=== PATIENT | male | born 1965 | race Caucasian/White ===

== ENCOUNTER 2016-11-10 05:59 | Inpatient (IN) | payer OTHER ==
[~2016-11-10] VITALS: Ht 170.2 cm; Wt 86.4 kg
[~2016-11-10 05:59] MED LIST: 0.9% SODIUM CHLORIDE 10 ML VIAL IVP ONE; AMLO-512 PO; EPHEDrine SULFATE 50 MG/ML VIAL IM ONE; FentaNYL CITRATE-PF 100 MCG/2 ML VIAL IVP ONE; HYDR25TA PO; KETAMINE HCL 50 MG/ML 10 ML VIAL IVP ONE; LISI-662 PO; MIDAZOLAM HCL 2 MG/2 ML VIAL IVP ONE; OMEP20 PO; RANI150T7 PO; RINGERS SOLUTION,LACTATED 1,000 ML IV ONE
[2016-11-10] MEDS ORDERED: RINGERS SOLUTION,LACTATED 1,000 ML IV ONE ×2 (06:00→08:18)
[2016-11-10 06:50] LABS: BASOPHILS % (AUTO) 0.4 % (0.0-2.0); EOSINOPHILS % (AUTO) 6.4 % (1.0-6.0); HEMOGLOBIN 14.4 g/dL (13.5-17.5); LYMPHOCYTES # (AUTO) 2.6 K/uL (1.0-4.8); MEAN CORPUSCULAR HEMOGLOBIN 28.8 pg (26.0-34.0); MEAN CORPUSCULAR HGB CONC 32.7 G/dL (31.0-37.0); MEAN CORPUSCULAR VOLUME 88 fL (80-100); MONOCYTES # (AUTO) 0.8 K/uL (0.1-1.0); MONOCYTES % (AUTO) 10.5 % (2.0-9.0); NEUTROPHILS # (AUTO) 3.5 K/uL (1.8-7.7); NEUTROPHILS % (AUTO) 47.7 % (40.0-70.0); PLATELET COUNT (AUTO) 319 K/uL (150-450); RED BLOOD CELL COUNT(AUTO) 4.99 MIL/uL (4.50-5.90); RED CELL DISTRIBUTION WIDTH 13.4 % (11.5-14.5); WHITE BLOOD COUNT (AUTO) 7.4 K/uL (4.5-11.0)
[2016-11-10] MEDS ORDERED: SODIUM CHLORIDE 0.9% 10 ML ONE (06:55)
[2016-11-10] MEDS ORDERED: BUPIVACAINE HCL/PF 0.5% 30 ML VIAL ONE (06:55)
[2016-11-10] MEDS ORDERED: ONDANSETRON HCL 4 MG/2 ML VIAL IVP PRN ×2 (07:00→07:30)
[2016-11-10] MEDS ORDERED: TRANEXAMIC ACID 1,000 MG in DEXTROSE 5%-WATER 50 ML IV ONE (07:00)
[2016-11-10] MEDS ORDERED: PROMETHAZINE HCL 25 MG/ML VIAL IM PRN (07:00)
[2016-11-10] MEDS ORDERED: CELECOXIB 200 MG CAPSULE PO ONE (07:00)
[2016-11-10] MEDS ORDERED: FentaNYL CITRATE-PF 100 MCG/2 ML VIAL IVP PRN (07:00)
[2016-11-10] MEDS ORDERED: HYDROmorphone 2 MG/ML SYRINGE IVP PRN ×2 (07:00)
[2016-11-10] MEDS ORDERED: ZOLPIDEM TARTRATE 5 MG TABLET PO PRN (07:00)
[2016-11-10] MEDS ORDERED: MEPERIDINE-PF 25 MG/ML SYRINGE IVP PRN (07:00)
[2016-11-10 07:01] LABS: ANION GAP 8 mmol/L (8-16); CALCIUM, TOTAL 9.4 mg/dL (8.8-10.5); CARBON DIOXIDE 29 mmol/L (22-29); CHLORIDE 103 mmol/L (98-107); CREATININE 1.09 mg/dL (0.60-1.30); GLOMERULAR FILTR. RATE CALC > 60 mL/min (>60); POTASSIUM 4.1 mmol/L (3.5-5.1); PROTHROMBIN TIME 10.5 SEC (9.4-11.6); SODIUM SERUM 140 mmol/L (136-145); UREA NITROGEN, BLOOD 19 mg/dL (7-18)
[2016-11-10] MEDS: ACETAMINOPHEN 1000 MG/ISO-OSM 100 ML IV SCH ×3 (07:01→18:55)
[2016-11-10] MEDS ORDERED: ACETAMINOPHEN 1000 MG/ISO-OSM 100 ML IV ONE (07:01)
[2016-11-10] MEDS ORDERED: CELECOXIB 200 MG CAPSULE ONE (07:01)
[2016-11-10 07:06] LABS: ALANINE AMINOTRANSFERASE 32 U/L (12-78); ALBUMIN 4.4 g/dL (3.4-5.0); ASPARTATE AMINOTRANSFERASE 18 U/L (15-37); BILIRUBIN,TOTAL 0.8 mg/dL (0.1-1.0); TOTAL PROTEIN, SERUM 7.8 g/dL (6.4-8.2)
[2016-11-10] MEDS ORDERED: SODIUM CHLORIDE 0.9% 100 ML ONE (07:12)
[2016-11-10] MEDS ORDERED: SODIUM CL IRRIG SOLN BAG 3,000 ML IRRIG ONE (07:13)
[2016-11-10] MEDS ORDERED: SODIUM CHLORIDE 0.9% 1,000 ML IV SCH (07:24)
[2016-11-10] MEDS ORDERED: 0.9% SODIUM CHLORIDE 10 ML SYRINGE IVP PRN (07:30)
[2016-11-10] MEDS ORDERED: DiphenhydrAMINE HCL 50 MG/ML VIAL IVP PRN (07:30)
[2016-11-10] MEDS ORDERED: BENZOCAINE/MENTHOL LOZENGE [8 LOZENGES/PACKET] PO PRN (07:30)
[2016-11-10] MEDS ORDERED: BISACODYL 10 MG RECTAL RECTAL SUPPOSITORY PR PRN (07:30)
[2016-11-10] MEDS ORDERED: MAG HYDROX/AL HYDROX/SIMETH 30 ML SUSP UDCUP PO PRN (07:30)
[2016-11-10] MEDS: BACITRACIN 50,000 UNITS/VIAL ONE ×3 (07:58→09:00)
[2016-11-10] MEDS ORDERED: OXYGEN THERAPY IH SCH (08:00)
[2016-11-10] MEDS: BUPIVACAINE LIPOSOME/PF 1.3%-13.3MG/ML SUSPENSION 20 ML VIAL INJ ONE ×2 (08:11→09:00)
[2016-11-10] MEDS: DOCUSATE SODIUM 100 MG CAPSULE PO SCH ×2 (09:00→19:58)
[2016-11-10] MEDS: OMEPRAZOLE 20 MG CAPSULE PO SCH ×2 (09:00→19:58)
[2016-11-10] MEDS ORDERED: ONDANSETRON HCL 4 MG/2 ML VIAL ONE (09:29)
[2016-11-10 10:38] VITALS: BP 119/72
[2016-11-10] MEDS: OXYGEN THERAPY IH SCH (11:36)
[2016-11-10] MEDS: HYDROmorphone 2 MG/ML SYRINGE IVP PRN ×5 (12:00→22:18)
[2016-11-10] MEDS: CYCLOBENZAPRINE HCL 10 MG TABLET PO PRN (12:43)
[2016-11-10] MEDS: AmLODIPine BESYLATE 10 MG TABLET PO SCH (13:38)
[2016-11-10] MEDS: HYDROCHLOROTHIAZIDE 25 MG TABLET PO SCH (13:38)
[2016-11-10] MEDS: LISINOPRIL 20 MG TABLET PO SCH (13:38)
[2016-11-10] MEDS ORDERED: PNEUMOCOCCAL VACCINE POLYVALENT 0.5 ML VIAL [PPSV23] IM ONE (15:00)
[2016-11-10 16:05] VITALS: BP 104/67
[2016-11-10] MEDS: CeFAZolin 1 GM/DEXTROSE 50 ML IV SCH (17:31)
[2016-11-10] MEDS ORDERED: HYDROmorphone 2 MG/ML SYRINGE IVP ONE (17:45)
[2016-11-10] MEDS: CELECOXIB 200 MG CAPSULE PO SCH (19:58)
[2016-11-10 20:00] VITALS: BP 113/80
[2016-11-10] MEDS ORDERED: ACETAMINOPHEN 325 MG TABLET PO PRN (22:00)
[2016-11-10] MEDS ORDERED: MAGNESIUM HYDROXIDE SUSPENSION 30 ML UDCUP PO PRN (22:00)
[2016-11-10] MEDS: ZOLPIDEM TARTRATE 10 MG TABLET PO PRN (22:18)
[2016-11-11] MEDS: CeFAZolin 1 GM/DEXTROSE 50 ML IV SCH (00:03)
[2016-11-11] MEDS: HYDROmorphone 2 MG/ML SYRINGE IVP PRN ×10 (00:04→23:49)
[2016-11-11] MEDS: CYCLOBENZAPRINE HCL 10 MG TABLET PO PRN ×2 (00:04→07:58)
[2016-11-11 00:07] VITALS: BP 123/80
[2016-11-11] MEDS: ACETAMINOPHEN 1000 MG/ISO-OSM 100 ML IV SCH ×2 (01:00→07:08)
[2016-11-11 04:24] VITALS: BP 116/79
[2016-11-11 06:16] LABS: BASOPHILS % (AUTO) 0.1 % (0.0-2.0); EOSINOPHILS % (AUTO) 1.2 % (1.0-6.0); HEMATOCRIT 36.6 % (41-53); MEAN CORPUSCULAR HEMOGLOBIN 29.1 pg (26.0-34.0); MEAN CORPUSCULAR HGB CONC 32.8 G/dL (31.0-37.0); MEAN CORPUSCULAR VOLUME 89 fL (80-100); MONOCYTES # (AUTO) 1.2 K/uL (0.1-1.0); MONOCYTES % (AUTO) 9.2 % (2.0-9.0); NEUTROPHILS # (AUTO) 9.8 K/uL (1.8-7.7); NEUTROPHILS % (AUTO) 74.5 % (40.0-70.0); PLATELET COUNT (AUTO) 272 K/uL (150-450); RED BLOOD CELL COUNT(AUTO) 4.13 MIL/uL (4.50-5.90); RED CELL DISTRIBUTION WIDTH 13.5 % (11.5-14.5); WHITE BLOOD COUNT (AUTO) 13.2 K/uL (4.5-11.0)
[2016-11-11 06:19] LABS: ANION GAP 9 mmol/L (8-16); CALCIUM, TOTAL 8.1 mg/dL (8.8-10.5); CARBON DIOXIDE 28 mmol/L (22-29); CHLORIDE 100 mmol/L (98-107); CREATININE 1.02 mg/dL (0.60-1.30); GLOMERULAR FILTR. RATE CALC > 60 mL/min (>60); POTASSIUM 3.7 mmol/L (3.5-5.1); SODIUM SERUM 137 mmol/L (136-145); UREA NITROGEN, BLOOD 18 mg/dL (7-18)
[2016-11-11 07:55] VITALS: BP 134/81
[2016-11-11] MEDS: OMEPRAZOLE 20 MG CAPSULE PO SCH ×2 (07:57→21:50)
[2016-11-11] MEDS: DOCUSATE SODIUM 100 MG CAPSULE PO SCH ×3 (07:57→21:51)
[2016-11-11] MEDS: HYDROCHLOROTHIAZIDE 25 MG TABLET PO SCH (07:58)
[2016-11-11] MEDS: AmLODIPine BESYLATE 10 MG TABLET PO SCH (07:58)
[2016-11-11] MEDS: LISINOPRIL 20 MG TABLET PO SCH (07:58)
[2016-11-11] MEDS: OXYGEN THERAPY IH SCH (08:00)
[2016-11-11] MEDS ORDERED: PANTOPRAZOLE SODIUM 40 MG DR TABLET PO SCH (09:00)
[2016-11-11] MEDS: RIVAROXABAN 10 MG TABLET PO SCH ×2 (09:00→17:31)
[2016-11-11] MEDS: CELECOXIB 200 MG CAPSULE PO SCH ×2 (10:00→21:51)
[2016-11-11] MEDS: HYDROCODONE/ACETAMINOPHEN 10-325 MG TABLET PO PRN ×2 (13:14→16:46)
[2016-11-11 16:24] VITALS: BP 116/75
[2016-11-11 20:00] VITALS: BP 137/72
[2016-11-11] MEDS: ZOLPIDEM TARTRATE 10 MG TABLET PO PRN (21:49)
[2016-11-12 00:03] VITALS: BP 120/75
[2016-11-12 03:31] VITALS: BP 128/76
[2016-11-12] MEDS: HYDROCODONE/ACETAMINOPHEN 10-325 MG TABLET PO PRN ×3 (03:31→11:34)
[2016-11-12] MEDS: CYCLOBENZAPRINE HCL 10 MG TABLET PO PRN ×2 (03:31→08:26)
[2016-11-12] MEDS: HYDROmorphone 2 MG/ML SYRINGE IVP PRN ×2 (04:06→09:33)
[2016-11-12 05:08] LABS: APPEARANCE,URINE CLOUDY (CLEAR); GLUCOSE, URINE (UA) NEGATIVE (NEGATIVE); KETONES,URINE NEGATIVE (NEGATIVE); LEUKOCYTE ESTERASE ,URINE SMALL (NEGATIVE); OCCULT BLOOD,URINE LARGE (NEGATIVE); PROTEIN,URINE NEGATIVE (NEGATIVE)
[2016-11-12 05:38] LABS: SQUAMOUS EPITHELIAL CELL,UR Moderate /LPF (None Seen)
[2016-11-12 06:05] LABS: BASOPHILS % (AUTO) 0.1 % (0.0-2.0); EOSINOPHILS % (AUTO) 3.4 % (1.0-6.0); HEMATOCRIT 32.6 % (41-53); HEMOGLOBIN 10.9 g/dL (13.5-17.5); LYMPHOCYTES % (AUTO) 17.7 % (22.0-44.0); MEAN CORPUSCULAR HEMOGLOBIN 29.6 pg (26.0-34.0); MEAN CORPUSCULAR HGB CONC 33.5 G/dL (31.0-37.0); MEAN CORPUSCULAR VOLUME 88 fL (80-100); MONOCYTES # (AUTO) 1.4 K/uL (0.1-1.0); MONOCYTES % (AUTO) 12.2 % (2.0-9.0); NEUTROPHILS # (AUTO) 7.5 K/uL (1.8-7.7); NEUTROPHILS % (AUTO) 66.6 % (40.0-70.0); PLATELET COUNT (AUTO) 232 K/uL (150-450); RED BLOOD CELL COUNT(AUTO) 3.69 MIL/uL (4.50-5.90); RED CELL DISTRIBUTION WIDTH 13.7 % (11.5-14.5); WHITE BLOOD COUNT (AUTO) 11.2 K/uL (4.5-11.0)
[2016-11-12 07:45] VITALS: BP 122/72
[2016-11-12] MEDS: OXYGEN THERAPY IH SCH (08:00)
[2016-11-12] MEDS: AmLODIPine BESYLATE 10 MG TABLET PO SCH (08:26)
[2016-11-12] MEDS: OMEPRAZOLE 20 MG CAPSULE PO SCH (08:26)
[2016-11-12] MEDS: CELECOXIB 200 MG CAPSULE PO SCH (08:27)
[2016-11-12] MEDS: HYDROCHLOROTHIAZIDE 25 MG TABLET PO SCH (08:27)
[2016-11-12] MEDS: DOCUSATE SODIUM 100 MG CAPSULE PO SCH (08:27)
[2016-11-12] MEDS: LISINOPRIL 20 MG TABLET PO SCH (08:28)
[2016-11-12] MEDS ORDERED: RIVA10 PO (10:31)
[2016-11-12] MEDS ORDERED: HYDR-309 PO (10:31)
[2016-11-12 11:27] VITALS: BP 133/72
== END 2016-11-12 13:31 | disposition home health service (06) | DRG 302 ==
LOC: 4E 05:59
PROVIDERS: ADMIT Orthopaedic Surgery; ATTEND Orthopaedic Surgery
PROC: 0SRD0J9 Replacement of Left Knee Joint with Synthetic Substitute, Cemented, Open Approach (ICD-10-PCS; principal; 2016-11-10 07:58)
DX: M17.12 Unilateral primary osteoarthritis, left knee (principal); I10 Essential (primary) hypertension; K21.9 Gastro-esophageal reflux disease without esophagitis; D72.829 Elevated white blood cell count, unspecified; Z79.899 Other long term (current) drug therapy; Z82.49 Family history of ischemic heart disease and other diseases of the circulatory system
CPT/HCPCS: 87081; 87086; 88300; 93005; 97110; 97116; 97161; 97165; 97530; 97535; C9290; G0238; J0131; J0690; J1170; J2250; J2405; J3010; J3490; J7030; J7050; J7060; J7120